=== PATIENT | female | born 1930 | race Two or more races ===

== ENCOUNTER 2017-04-28 11:37 | Inpatient (IN) | payer OTHER, MEDICARE ==
[~2017-04-28] VITALS: Ht 162.6 cm; Wt 75.6 kg
[~2017-04-28 11:37] MED LIST: ASPIR 8181 M1 PO; AUGMENTIN875 MG PO; Baciguent TP; DOCUSATE SODIU100 MG PO; GLYBURIDE5 MG PO; ISOPTIN SR240 M1 PO; JANUVIA25 M1 PO; KLOR-CON M1010 MEQ PO; LASIX40 MG PO; NORCO 5/3251 TABLET PO; ROPINIROLE HCL1 MG PO; TYLENOL REGULA325 MG PO; VIBRAMYCIN100 MG PO; VITAMIN D1000 UNIT PO; VITAMIN E1000 UNI1 PO; ZOCOR20 MG PO
[2017-04-28 12:29] LABS: HEMATOCRIT 37.7 % (36.0-46.0); MCH 29.4 PG (29.0-34.0); MCHC 33.2 G/DL (30.0-36.0); MCV 88.7 FL (83-99); MEAN PLAT.VOLUME 9.2 uM^3 (9.5-12.4); PLATELET COUNT 293 K/uL (156-360); RBC DIS.WIDTH-CV 12.5 % (11.8-14.6); RBC DIS.WIDTH-SD 40.3 % (39-53); RED BLOOD COUNT 4.25 M/uL (3.80-5.20); WHITE BLOOD COUNT 22.1 K/uL (4.1-10.2)
[2017-04-28 12:40] LABS: CHLORIDE 99 mEq/L (99-109); POTASSIUM 4.8 mEq/L (3.7-5.4); SODIUM 137 mEq/L (136-147)
[2017-04-28 12:42] LABS: GLUCOSE 174 mg/dL (70-99)
[2017-04-28 12:43] LABS: ANION GAP 11 MEQ/L (2-14)
[2017-04-28 12:45] LABS: GFR ESTIMATE (CALCULATED) > 59 mL/min/
[2017-04-28 12:46] LABS: UREA NITROGEN (BUN) 15 mg/dL (9-23)
[2017-04-28 12:50] LABS: TROP-I INTERPRETATION NEGATIVE; TROPONIN-I 0.02 ng/mL (0.0-0.30)
[2017-04-28] MEDS ORDERED: SYMBICORT60 INHALAT IH (13:45)
[2017-04-28] MEDS ORDERED: ZANTAC150 MG PO (13:45)
[2017-04-28] MEDS ORDERED: DUONEB 2.5-0.5 M3 ML AEROSOL (13:45)
[2017-04-28] MEDS ORDERED: SINGULAIR10 MG PO (13:45)
[2017-04-28] MEDS ORDERED: ZOCOR20 MG PO (13:46)
[2017-04-28] MEDS ORDERED: VERAPAMIL HCL240 MG PO (13:46)
[2017-04-28] MEDS ORDERED: KLOR-CON M1010 MEQ PO (13:47)
[2017-04-28] MEDS ORDERED: GLYBURIDE5 MG PO (13:47)
[2017-04-28] MEDS ORDERED: REQUIP1 MG PO (13:47)
[2017-04-28] MEDS ORDERED: LASIX40 MG PO (13:47)
[2017-04-28] MEDS ORDERED: VITAMIN E400 UNIT PO (13:48)
[2017-04-28] MEDS ORDERED: VITAMIN D31000 UNI2 PO (13:48)
[2017-04-28] MEDS ORDERED: LO-DOSE ASPIRIN81 M1 PO (13:48)
[2017-04-28] MEDS ORDERED: TYLENOL EXTRA500 MG PO (13:49)
[2017-04-28 16:27] VITALS: BP 117/56
[2017-04-28 16:33] LABS: POINT-OF-CARE METER ID UU14208750
[2017-04-28 19:02] LABS: ADD MIUA? YES; BILIRUBIN NEGATIVE; BLOOD NEGATIVE; COLOR YELLOW ((YELLOW)); GLUCOSE (STRIP) NEGATIVE; KETONES NEGATIVE; LEUKOCYTES MODERATE; NITRITE NEGATIVE; PROTEIN (STRIP) NEGATIVE; SPECIFIC GRAVITY 1.015 (1.000-1.030); UROBILINOGEN 0.2 MG/DL (0.2-1.0)
[2017-04-28 19:07] LABS: BACTERIA NONE SEEN /HPF; EPITHELIAL CELLS 2+ /HPF; HYALINE CASTS 0-5 /LPF; MUCUS NONE SEEN /LPF; UCUL ADDED? NO; WHITE BLOOD CELLS 0-5 /HPF (0-5); WHITE BLOOD CELLS CLUMP RARE /HPF (0-5)
[2017-04-28 19:50] VITALS: BP 134/65
[2017-04-28 21:21] LABS: POINT-OF-CARE METER ID UU14208750
[2017-04-28 22:54] LABS: BASOPHIL COUNT 0.1 K/uL (0-0.1); EOSINOPHIL (%) 0.2 % (0-5); IMMATURE GRANULOCYTE (%) 0.4 % (0.0-0.7); IMMATURE GRANULOCYTE COUNT 0.1 K/uL; INSTRUMENT ABS NEUTROPHIL CT 17.7 K/uL; LYMPHOCYTE COUNT 2.8 K/uL (1.0-2.8); MONOCYTE (%) 7.5 % (3-12); MONOCYTE COUNT 1.7 K/uL (0-0.8); NEUTROPHIL (%) 79.3 % (45-76); NEUTROPHIL COUNT 17.7 K/uL (1.8-6.4)
[2017-04-29] VITALS (7 sets, daily range): BP systolic 130–184; BP diastolic 61–72
[2017-04-29 06:40] LABS: EOSINOPHIL (%) 0 % (0-5); HEMATOCRIT 36.1 % (36.0-46.0); IMMATURE GRANULOCYTE (%) 0.7 % (0.0-0.7); IMMATURE GRANULOCYTE COUNT 0.1 K/uL; INSTRUMENT ABS NEUTROPHIL CT 12.8 K/uL; LYMPHOCYTE COUNT 3.3 K/uL (1.0-2.8); MCH 28.7 PG (29.0-34.0); MCHC 32.4 G/DL (30.0-36.0); MCV 88.5 FL (83-99); MEAN PLAT.VOLUME 9.3 uM^3 (9.5-12.4); MONOCYTE (%) 1.9 % (3-12); MONOCYTE COUNT 0.3 K/uL (0-0.8); NEUTROPHIL COUNT 12.8 K/uL (1.8-6.4); PLATELET COUNT 287 K/uL (156-360); RBC DIS.WIDTH-CV 12.3 % (11.8-14.6); RBC DIS.WIDTH-SD 39.8 % (39-53); RED BLOOD COUNT 4.08 M/uL (3.80-5.20); WHITE BLOOD COUNT 16.6 K/uL (4.1-10.2)
[2017-04-29 07:06] LABS: ALKALINE PHOSPHATASE 93 IU/L (3-129); ANION GAP 11 MEQ/L (2-14); CHLORIDE 102 MEQ/L (99-109); GFR ESTIMATE (CALCULATED) > 59 mL/min/; GLUCOSE 213 mg/dL (70-99); POTASSIUM 4.4 MEQ/L (3.7-5.4); SAMPLE HEMOLYSIS CHECK 0; SAMPLE ICTERIC CHECK 0; SAMPLE LIPEMIA CHECK 0; SODIUM 136 MEQ/L (136-147); TOTAL BILIRUBIN 0.4 MG/DL (0.0-1.0); UREA NITROGEN (BUN) 19 mg/dL (9-23)
[2017-04-29 07:42] LABS: POINT-OF-CARE METER ID UU14314084
[2017-04-29 08:47] LABS: INTERNAL CONTROL VALID? YES
[2017-04-29 11:33] LABS: POINT-OF-CARE METER ID UU14314084
[2017-04-29 15:51] LABS: POINT-OF-CARE METER ID UU14314084
[2017-04-29 21:41] LABS: POINT-OF-CARE METER ID UU14208750
[2017-04-30 03:30] VITALS: BP 156/71
[2017-04-30 06:47] LABS: POINT-OF-CARE METER ID UU14208750
[2017-04-30 08:29] VITALS: BP 143/69
== END 2017-04-30 11:07 | disposition home or self-care (01) | DRG 193 ==
LOC: EME 11:37 → EDOF 13:34 → ENRESERV 13:39 → EDOF 15:17 → 2EAST 16:04
PROVIDERS: Emergency Medicine; Internal Medicine; Nurse Practitioner Adult Health
DX: J18.9 Pneumonia, unspecified organism (principal); J96.01 Acute respiratory failure with hypoxia; J44.0 Chronic obstructive pulmonary disease with (acute) lower respiratory infection; J44.1 Chronic obstructive pulmonary disease with (acute) exacerbation; I11.0 Hypertensive heart disease with heart failure; I50.9 Heart failure, unspecified; E11.9 Type 2 diabetes mellitus without complications; E78.5 Hyperlipidemia, unspecified; K21.9 Gastro-esophageal reflux disease without esophagitis; E66.9 Obesity, unspecified; Z68.28 Body mass index [BMI] 28.0-28.9, adult; Z79.51 Long term (current) use of inhaled steroids; Z79.82 Long term (current) use of aspirin; Z79.84 Long term (current) use of oral hypoglycemic drugs
CPT/HCPCS: 71010; 80048; 80053; 81003; 82948; 83605; 84484; 85025; 85027; 87040; 87449; 87502; 93005; 94640; 94640 76; 94799; 99202; 99281; 99285; J0456; J0696; J1650; J1815; J2920; J7050

== ENCOUNTER 2018-02-07 11:57 | Inpatient (IN) | payer OTHER, MEDICARE ==
[~2018-02-07] VITALS: Ht 157.5 cm; Wt 76.6 kg
[~2018-02-07 11:57] MED LIST changes: +DUONEB 2.5-0.5 M3 ML AEROSOL; +LO-DOSE ASPIRIN81 M1 PO; +REQUIP1 MG PO; +SINGULAIR10 MG PO; +SYMBICORT60 INHALAT IH; +TYLENOL EXTRA500 MG PO; +VERAPAMIL HCL240 MG PO; +VITAMIN D31000 UNI2 PO; +VITAMIN E400 UNIT PO; +ZANTAC150 MG PO
[2018-02-07 13:03] LABS: HEMATOCRIT 43.3 % (36.0-46.0); HEMOGLOBIN 15.2 G/DL (11.9-15.5); MCHC 35.1 G/DL (30.0-36.0); MCV 88.2 FL (83-99); PLATELET COUNT 285 K/uL (156-360); RBC DIS.WIDTH-CV 12.1 % (11.8-14.6); RBC DIS.WIDTH-SD 39.6 % (39-53); RED BLOOD COUNT 4.91 M/uL (3.80-5.20); WHITE BLOOD COUNT 12.8 K/uL (4.1-10.2)
[2018-02-07 13:15] LABS: ALBUMIN 4.3 g/dL (3.2-4.8); CHLORIDE 101 mEq/L (99-109); POTASSIUM 3.4 mEq/L (3.7-5.4); SODIUM 141 mEq/L (136-147)
[2018-02-07 13:17] LABS: GLUCOSE 219 mg/dL (70-99); TOTAL PROTEIN 7.3 g/dL (6.4-8.3)
[2018-02-07 13:19] LABS: TOTAL BILIRUBIN 0.6 mg/dL (0.0-1.0)
[2018-02-07 13:21] LABS: ALKALINE PHOSPHATASE 103 IU/L (3-129); CREATININE 0.9 mg/dL (0.6-1.3); GFR ESTIMATE (CALCULATED) > 59 mL/min/
[2018-02-07 13:22] LABS: AST (GOT) 17 IU/L (2-34); UREA NITROGEN (BUN) 10 mg/dL (9-23)
[2018-02-07 13:23] LABS: DIRECT BILIRUBIN 0.2 mg/dL (0.0-0.3)
[2018-02-07 13:24] LABS: ALT (GPT) 17 IU/L (3-49); LIPASE 7 U/L (1.0-51.0); TROP-I INTERPRETATION NEGATIVE; TROPONIN-I < 0.01 ng/mL (0.0-0.30)
[2018-02-07] MEDS ORDERED: VERAPAMIL HCL240 MG PO (15:06)
[2018-02-07] MEDS ORDERED: SIMVASTATIN20 MG PO (15:07)
[2018-02-07] MEDS ORDERED: VENTOLIN HFA18 GM IH (15:07)
[2018-02-07] MEDS ORDERED: LEXAPRO10 MG PO (15:08)
[2018-02-07] MEDS ORDERED: GLYBURIDE5 MG PO (15:08)
[2018-02-07] MEDS ORDERED: SILVADENE,SSD,T50 GM TP (15:09)
[2018-02-07] MEDS ORDERED: K-DUR10 MEQ PO (15:09)
[2018-02-07] MEDS ORDERED: LASIX40 MG PO (15:10)
[2018-02-07] MEDS ORDERED: REQUIP1 MG PO (15:11)
[2018-02-07] MEDS ORDERED: VITAMIN E1000 UNI1 PO (15:11)
[2018-02-07] MEDS ORDERED: VITAMIN D31000 UNI2 PO (15:12)
[2018-02-07] MEDS ORDERED: LOW DOSE ASPIRI81 M1 PO (15:14)
[2018-02-07] MEDS ORDERED: TYLENOL REGULA325 MG PO (15:14)
[2018-02-07] MEDS ORDERED: SINGULAIR10 MG PO (15:15)
[2018-02-07] MEDS ORDERED: SYMBICORT60 INHALAT IH (15:15)
[2018-02-07] MEDS ORDERED: ZANTAC150 MG PO (15:15)
[2018-02-07] MEDS ORDERED: DUONEB 2.5-0.5 M3 ML AEROSOL (15:16)
[2018-02-07 17:24] VITALS: BP 171/75
[2018-02-07 19:40] VITALS: BP 167/72
[2018-02-07 20:46] LABS: TROP-I INTERPRETATION NEGATIVE; TROPONIN-I < 0.01 ng/mL (0.0-0.30)
[2018-02-07 23:51] VITALS: BP 148/74
[2018-02-08 03:40] VITALS: BP 142/74
[2018-02-08 05:23] LABS: HEMATOCRIT 40.8 % (36.0-46.0); HEMOGLOBIN 14.4 G/DL (11.9-15.5); MCHC 35.3 G/DL (30.0-36.0); MCV 87.9 FL (83-99); PLATELET COUNT 268 K/uL (156-360); RBC DIS.WIDTH-CV 12.1 % (11.8-14.6); RBC DIS.WIDTH-SD 38.8 % (39-53); RED BLOOD COUNT 4.64 M/uL (3.80-5.20); WHITE BLOOD COUNT 14.7 K/uL (4.1-10.2)
[2018-02-08 05:41] LABS: TROP-I INTERPRETATION NEGATIVE; TROPONIN-I < 0.01 ng/mL (0.0-0.30)
[2018-02-08 06:02] LABS: ALBUMIN 3.8 G/DL (3.2-4.8); ALKALINE PHOSPHATASE 75 IU/L (3-129); ALT (GPT) 13 IU/L (3-49); AST (GOT) 15 IU/L (2-34); CHLORIDE 98 MEQ/L (99-109); CREATININE 0.9 MG/DL (0.6-1.3); GFR ESTIMATE (CALCULATED) > 59 mL/min/; GLUCOSE 318 mg/dL (70-99); SODIUM 136 MEQ/L (136-147); TOTAL BILIRUBIN 0.6 MG/DL (0.0-1.0); TOTAL PROTEIN 6.1 G/DL (6.4-8.3); UREA NITROGEN (BUN) 14 mg/dL (9-23)
[2018-02-08 06:14] LABS: POTASSIUM 4.8 MEQ/L (3.7-5.4)
[2018-02-08 08:02] VITALS: BP 149/82
[2018-02-08 08:49] LABS: APPEARANCE CLEAR ((CLEAR)); BILIRUBIN NEGATIVE; BLOOD NEGATIVE; COLOR YELLOW ((YELLOW)); GLUCOSE (STRIP) >=500; KETONES 5; LEUKOCYTES MODERATE; NITRITE NEGATIVE; PROTEIN (STRIP) 30; SPECIFIC GRAVITY 1.017 (1.000-1.030); UROBILINOGEN 0.2 MG/DL (0.2-1.0)
[2018-02-08 08:58] LABS: BACTERIA RARE /HPF; EPITHELIAL CELLS RARE /HPF; MUCUS TRACE /LPF; RED BLOOD CELLS 0-5 /HPF (0-5); UCUL ADDED? YES; WHITE BLOOD CELLS 20-30 /HPF (0-5)
[2018-02-08 12:01] VITALS: BP 153/82
[2018-02-08 12:41] LABS: TROP-I INTERPRETATION NEGATIVE; TROPONIN-I < 0.01 ng/mL (0.0-0.30)
[2018-02-08 15:45] VITALS: BP 151/79
[2018-02-08 19:10] VITALS: BP 144/73
[2018-02-08 23:13] VITALS: BP 157/90
[2018-02-09 03:38] VITALS: BP 151/81
[2018-02-09 07:50] VITALS: BP 142/71
[2018-02-09 12:14] VITALS: BP 135/63
[2018-02-09 16:12] VITALS: BP 142/76
[2018-02-09 19:16] VITALS: BP 139/72
[2018-02-09 23:06] VITALS: BP 133/63
[2018-02-10 06:03] LABS: BASOPHIL (%) 0.1 % (0-1); EOSINOPHIL (%) 0.1 % (0-5); HEMATOCRIT 41.6 % (36.0-46.0); HEMOGLOBIN 14.5 G/DL (11.9-15.5); IMMATURE GRANULOCYTE (%) 0.9 % (0.0-0.7); LYMPHOCYTE (%) 27.9 % (15-42); LYMPHOCYTE COUNT 5.2 K/uL (1.0-2.8); MCH 30.9 PG (29.0-34.0); MCHC 34.9 G/DL (30.0-36.0); MCV 88.5 FL (83-99); MONOCYTE (%) 4.6 % (3-12); MONOCYTE COUNT 0.9 K/uL (0-0.8); NEUTROPHIL (%) 66.4 % (45-76); NEUTROPHIL COUNT 12.5 K/uL (1.8-6.4); PLATELET COUNT 312 K/uL (156-360); RBC DIS.WIDTH-CV 12.1 % (11.8-14.6); RBC DIS.WIDTH-SD 39.2 % (39-53); WHITE BLOOD COUNT 18.7 K/uL (4.1-10.2)
[2018-02-10 06:40] LABS: CHLORIDE 100 MEQ/L (99-109); CREATININE 0.8 MG/DL (0.6-1.3); GFR ESTIMATE (CALCULATED) > 59 mL/min/; GLUCOSE 251 mg/dL (70-99); POTASSIUM 4.5 MEQ/L (3.7-5.4); SODIUM 136 MEQ/L (136-147)
[2018-02-10 06:43] LABS: UREA NITROGEN (BUN) 26 mg/dL (9-23)
[2018-02-10 07:42] VITALS: BP 117/74
[2018-02-10 11:43] VITALS: BP 161/79
[2018-02-10 16:09] VITALS: BP 120/76
[2018-02-10] MEDS ORDERED: PREDNISONE10 MG PO (17:57)
[2018-02-10] MEDS ORDERED: ALPRAZOLAM0.25 M2 PO (17:59)
== END 2018-02-10 18:58 | disposition home or self-care (01) | DRG 191 ==
LOC: EME 11:57 → EDOF 15:10 → 2EAST 15:10 → ENRESERV 15:57 → 2EAST 17:06
PROVIDERS: Internal Medicine
DX: J44.1 Chronic obstructive pulmonary disease with (acute) exacerbation (principal); E87.6 Hypokalemia; E78.5 Hyperlipidemia, unspecified; E66.9 Obesity, unspecified; K21.9 Gastro-esophageal reflux disease without esophagitis; G25.81 Restless legs syndrome; C95.11 Chronic leukemia of unspecified cell type, in remission; F32.9 Major depressive disorder, single episode, unspecified; F41.9 Anxiety disorder, unspecified; J84.10 Pulmonary fibrosis, unspecified; M19.90 Unspecified osteoarthritis, unspecified site; Z87.01 Personal history of pneumonia (recurrent); Z68.30 Body mass index [BMI] 30.0-30.9, adult; I10 Essential (primary) hypertension; E11.9 Type 2 diabetes mellitus without complications
CPT/HCPCS: 71046; 80048; 80053; 80076; 81003; 82948; 83690; 83880; 84484; 85025; 85027; 87086; 93005; 94640; 94760; 94799; J1815; J2920; J2930